=== PATIENT | female | born 1995 | race Caucasian/White ===

== ENCOUNTER 2018-04-19 19:00 | Emergency (ER) | payer OTHER ==
--- NOTE | 2018-04-19 19:33 | EDPHY ---
H & P Stated Complaint: Work comp, tripped and hit heat, L eyebrw lac Time Seen by Provider: 04/19/18 20:02 HPI/ROS: HPI: This is a 22-year-old female who presents with Chief Complaint: Left eyebrow laceration Location: Left eyebrow Quality: Laceration Duration: 1-2 hours prior to arrival Signs and Symptoms: no fever, no nausea, no vomiting, no photophobia, no noise sensitivity, no neck stiffness, no ear pain, no tinnitus, no nasal congestion, no sinus pressure, no weakness, no radiation, no aura Timing: Acute Severity: Mild Context: Patient has a history of severe concussion with cognitive deficits [place] and hitting her left eyebrow approximately 1-2 hours prior to arrival. She reports that the area started to bleed and she felt mild pain. She flushed it thoroughly with water and approximated the edges with Steri-Strips. After patient was in the emergency room over 1 hr, she then started complaining of a dull headache behind her left eye that radiates to the base of her neck. Patient does complain of mild dizziness but no amnesia/loss of consciousness/nausea/vomiting/ neck pain. Patient has Shadia IUD. Modifying Factors: See above Comment: ROS: see HPI Constitutional: No fever, no chills, no weight loss Eyes: No blurred vision Respiratory: No shortness of breath, no cough Cardiovascular: No chest pain, no palpitations Gastrointestinal: No nausea, no vomiting, no diarrhea, no hematemesis, no blood in stool Genitourinary: No dysuria, no blood in urine Extremities: No myalgias, no edema Neurologic: No weakness, no numbness Skin: No rashes, no petechiae Hematologic: No bruising, no bleeding MEDICAL/SURGICAL/SOCIAL HISTORY: Medical history: Generally healthy. Does not take any regular medications. Surgical history: Denies Social history: Nonsmoker. Family history noncontributory. CONSTITUTIONAL: Polite and cooperative young adult white female, laughing with friends at bedside, awake and alert, no obvious distress HEENT: 1/4 cm linear in left eyebrow well approximated laceration no active bleeding; Steri-Strips in place. normocephalic. NECK: supple, no midline tenderness, flexion 45 degrees, extension 45 degrees, right and left lateral flexion 45 degrees. No meningismus. Cardiovascular: Normal S1/S2, regular rate, regular rhythm, without murmur rub or gallop. PULMONARY/CHEST: Symmetrical and nontender. no crepitus. Clear to auscultation bilaterally. Good air movement. No accessory muscle usage. ABDOMEN: Soft, nondistended, nontender, no ecchymosis. EXTREMITIES: 2/2 pulses, strength 5/5, no deformities, no clubbing, no cyanosis or edema. NEUROLOGICAL: no focal neuro deficits. GCS 15. Light touch sensation intact. SKIN: Warm and dry, no erythema. no rash. Good capillary refill. Source: Patient Exam Limitations: No limitations - Personal History LMP (Females 10-55): IUD In Place Current Tetanus Diphtheria and Acellular Pertussis (TDAP): Yes - Medical/Surgical History Hx Asthma: No Hx Chronic Respiratory Disease: No Hx Diabetes: No Hx Cardiac Disease: No Hx Renal Disease: No Hx Cirrhosis: No Hx Alcoholism: No Hx HIV/AIDS: No Hx Splenectomy or Spleen Trauma: No Other PMH: polycystic ovian , endoscopy , ulcer caused by doxicline - Social History Smoking Status: Never smoked Constitutional: Initial Vital Signs Temperature (C) 36.6 C 04/19/18 19:13 Heart Rate 105 H 04/19/18 19:13 Respiratory Rate 20 04/19/18 19:13 Blood Pressure 149/93 H 04/19/18 19:13 O2 Sat (%) 96 04/19/18 19:13 O2 Delivery Mode Room Air Allergies/Adverse Reactions: morphine Allergy (Verified 04/19/18 19:13) Home Medications: Medication Instructions Recorded Effexor 10/21/14 MIRENA 10/21/14 Ondansetron Odt [Zofran Odt 4 mg 4 mg PO Q4 PRN #6 tab 10/21/14 (RX)] Medical Decision Making ED Course/Re-evaluation: Left eyebrow laceration is superficial, simple in nature. Steri-Strips already applied and wound appropriately approximated. No signs of active bleeding. Verbal and written wound care instructions provided. Patient had no loss of consciousness and no neurological deficits. No indication for head CT imaging based on [facility] CT head protocol. Patient advised of concussion precautions due to her history in March 2016 of a concussion that was deemed severe with cognitive deficits. Appropriate paperwork completed per [place]. This patient was seen under the supervision of my secondary supervising physician. I evaluated care for this patient independently. Discussed this patient with Dr. Gibson. Differential Diagnosis: Head injury including but not limited to concussion, skull fracture, intraparenchymal contusion, subarachnoid, subdural and epidural hematoma. Departure - Departure Disposition: Home, Routine, Self-Care Clinical Impression: Laceration of left eyebrow without complication Qualifiers: Encounter type: initial encounter Qualified Code(s): S01.112A - Laceration without foreign body of left eyelid and periocular area, initial encounter Concussion Qualifiers: Encounter type: initial encounter Loss of consciousness presence/duration: without LOC Qualified Code(s): S06.0X0A - Concussion without loss of consciousness, initial encounter Condition: Good Instructions: Steristrips (ED), Facial Laceration (ED), Concussion (ED) Additional Instructions: Keep the Steri-Strips dry for 48 hours. After 48 hours, you may wash the site daily with mild soap and water; then pat dry. Allow the Steri-Strips to fall off on their own in 5-7 days. Take Tylenol 650 mg every 4 hours and/or Ibuprofen 600 mg every 8 hours with food as needed for pain/headache. If at any time you are concerned about the cosmetic appearance, follow-up with plastic surgery for scar revision. You did sustain a closed head injury and it is recommended that you observe concussion precautions. If symptoms persist over the next 1-2 weeks, follow-up with Dr. Heath in the concussion Clinic. Return to the ER immediately if you have progressive headaches, neurologic deficits, gait abnormality, visual disturbance, slurred speech, or any other symptom that concerns you. Referrals: WANDA TUCKER JR [Primary Care Provider] - As per Instructions Wilber Bailey MD [Medical Doctor] - As per Instructions Brittani Heath MD [Medical Doctor] - As per Instructions Stand Alone Forms: Work Excuse
[2018-04-19 20:07] VITALS: BP 130/72
== END 2018-04-19 20:05 | disposition home or self-care (01) ==
DX: S01.112A Laceration without foreign body of left eyelid and periocular area, initial encounter (principal); W22.8XXA Striking against or struck by other objects, initial encounter

== ENCOUNTER 2018-08-23 16:19 | Observation (INO) | payer OTHER ==
--- NOTE | 2018-08-23 16:33 | EDPHY ---
H & P Time Seen by Provider: 08/23/18 16:21 HPI/ROS: CHIEF COMPLAINT: Left-sided chest pain and racing heart rate HISTORY OF PRESENT ILLNESS: Patient was at work making a snack for someone else when she had sudden onset of left-sided chest discomfort radiating up to her neck feeling lightheaded and dizzy. EMS found her in a narrow complex tachycardia at a rate of 260, converted her after 2 doses of 12 mg IV adenosine. And now she feels fatigued and tired with a little bit of residual discomfort in her chest. No shortness of breath or leg swelling. No recent travel or immobilization. Did not actually lose consciousness. REVIEW OF SYSTEMS: Eye: no change in vision ENT: no sore throat Cardiac: HPI Pulmonary: no cough or SOB Abdomen: no vomiting, diarrhea, abdominal pain Musculoskeletal: no back pain or leg swelling Skin: no rash Neuro: no headache Constitutional: no fever : no urinary symptoms A comprehensive 10 point review of systems is otherwise negative aside from elements mentioned in the history of present illness. PAST MEDICAL HISTORY: Attention deficit hyperactivity disorder, on Focalin, hypothyroid; hasn't taken thyroid medication in 1 month Social history: Works at [address], father is a cardiac surgeon at [facility] in [place] General Appearance: Alert and conversant, cooperative. Eyes: No scleral icterus. ENT, Mouth: Normal mucous membranes. Respiratory: Normal respiratory effort, breath sounds equal, lungs are clear to auscultation. Cardiovascular: Regular rate and rhythm. Tachycardic, normal heart rate she describes as in the mid 90s. No murmur. Gastrointestinal: Abdomen is soft and non tender. Neurological: Alert, face symmetric, normal motor and sensory in extremities. Skin: Warm and dry, no rashes. Musculoskeletal: No peripheral edema. No calf tenderness. Psychiatric: Moderately anxious. Emergency Department course/MDM: Patient presented with narrow complex supraventricular tachycardia which is terminated with adenosine. History of hypothyroid not on medications, I think that hyperthyroid, pulmonary embolism, acute coronary syndrome all unlikely. 1919: Heart rate 130, EKG reviewed with Dr. Fajardo, sent via text with the patient's consent. 1925: Discussed with father Jaylon by telephone at her request. Multiple doses of Ativan for anxiety. Oral Cardizem recommended by Dr. Fajardo; DC only if heart rate normalizes. 2038: Heart rate is still 125, Fajardo aware, admit hospitalist. Smoking Status: Never smoked Constitutional: Initial Vital Signs Temperature (C) 36.8 C 08/23/18 16:26 Heart Rate 127 H 08/23/18 16:26 Respiratory Rate 08/23/18 16:26 Blood Pressure 136/97 H 08/23/18 16:26 O2 Sat (%) 100 08/23/18 16:26 O2 Delivery Mode Nasal Cannula O2 (L/minute) 2 Allergies/Adverse Reactions: morphine Allergy (Severe, Verified 08/23/18 16:32) codeine Allergy (Intermediate, Verified 08/23/18 16:33) clindamycin Adverse Reaction (Mild, Verified 08/23/18 16:32) Home Medications: Medication Instructions Recorded Effexor 10/21/14 MIRENA 10/21/14 Ondansetron Odt [Zofran Odt 4 mg 4 mg PO Q4 PRN #6 tab 10/21/14 (RX)] FOCALIN 08/23/18 Medical Decision Making - Diagnostics EKG Interpretation: 12-lead EKG interpreted by me; official reading is in computer system. My interpretation is sinus tachycardia with left atrial enlargement rate 127. Specifically no delta wave is seen. Differential Diagnosis: Differential diagnosis considered for narrow complex tachycardia including but not limited to various causes of sinus tachycardia, SVT, atrial flutter and atrial fibrillation. Consult/Admit Bed Type: Dr. Mcneill 2042 - Data Points Laboratory Results: Laboratory Results 08/23/18 17:19 08/23/18 17:19 08/23/18 08/23/18 08/23/18 18:35 18:35 17:29 WBC RBC Hgb Hct MCV MCH MCHC RDW Plt Count MPV Neut % (Auto) Lymph % (Auto) Bowie % (Auto) Eos % (Auto) Baso % (Auto) Nucleat RBC Rel Count Absolute Neuts (auto) Absolute Lymphs (auto) Absolute Monos (auto) Absolute Eos (auto) Absolute Basos (auto) Absolute Nucleated RBC Immature Gran % Immature Gran # D-Dimer < 0.27 ug/mLFEU ug/mLFEU (0.00-0.50) Sodium Potassium Chloride Carbon Dioxide Anion Gap BUN Creatinine Estimated GFR Glucose Calcium TSH 1.600 uIU/mL uIU/mL (0.465-4.680) Beta HCG, Qual NEGATIVE 08/23/18 08/23/18 17:19 17:19 WBC 3.96 10^3/uL 10^3/uL (3.80-9.50) RBC 4.23 10^6/uL 10^6/uL (4.18-5.33) Hgb 13.9 g/dL g/dL (12.6-16.3) Hct 40.7 % % (38.0-47.0) MCV 96.2 fL fL (81.5-99.8) MCH 32.9 pg pg (27.9-34.1) MCHC 34.2 g/dL g/dL (32.4-36.7) RDW 12.1 % % (11.5-15.2) Plt Count 189 10^3/uL 10^3/uL (150-400) MPV 10.3 fL fL (8.7-11.7) Neut % (Auto) 61.3 % % (39.3-74.2) Lymph % (Auto) 30.3 % % (15.0-45.0) Bowie % (Auto) 6.8 % % (4.5-13.0) Eos % (Auto) 0.5 % L % (0.6-7.6) Baso % (Auto) 0.8 % % (0.3-1.7) Nucleat RBC Rel Count 0.0 % % (0.0-0.2) Absolute Neuts (auto) 2.43 10^3/uL 10^3/uL (1.70-6.50) Absolute Lymphs (auto) 1.20 10^3/uL 10^3/uL (1.00-3.00) Absolute Monos (auto) 0.27 10^3/uL L 10^3/uL (0.30-0.80) Absolute Eos (auto) 0.02 10^3/uL L 10^3/uL (0.03-0.40) Absolute Basos (auto) 0.03 10^3/uL 10^3/uL (0.02-0.10) Absolute Nucleated RBC 0.00 10^3/uL 10^3/uL (0-0.01) Immature Gran % 0.3 % % (0.0-1.1) Immature Gran # 0.01 10^3/uL 10^3/uL (0.00-0.10) D-Dimer Sodium 142 mEq/L mEq/L (135-145) Potassium 3.8 mEq/L mEq/L (3.5-5.2) Chloride 106 mEq/L mEq/L (97-110) Carbon Dioxide 23 mEq/l mEq/l (22-31) Anion Gap 13 mEq/L mEq/L (6-14) BUN 8 mg/dL mg/dL (7-23) Creatinine 0.7 mg/dL mg/dL (0.6-1.0) Estimated GFR > 60 Glucose 84 mg/dL mg/dL (70-100) Calcium 9.6 mg/dL mg/dL (8.5-10.4) TSH Beta HCG, Qual Medications Given: Diltiazem HCl (Cardizem Er Q24hr) 120 mg PO EDNOW ONE Stop: 08/24/18 19:22 Last Admin: 08/23/18 20:02 Dose: 120 mg Discontinued Medications Sodium Chloride (Ns) 1,000 mls @ 0 mls/hr IV EDNOW ONE; Wide Open PRN Reason: Protocol Stop: 08/23/18 19:26 Last Admin: 08/23/18 19:37 Dose: 1,000 mls Lorazepam (Ativan Injection) 1 mg IVP EDNOW ONE Stop: 08/23/18 16:58 Last Admin: 08/23/18 17:02 Dose: 1 mg Lorazepam (Ativan Injection) 1 mg IVP ONCE ONE Stop: 08/23/18 17:02 Last Admin: 08/23/18 17:09 Dose: Not Given Lorazepam (Ativan) 1 mg PO EDNOW ONE Stop: 08/23/18 19:35 Last Admin: 08/23/18 19:37 Dose: 1 mg Departure - Departure Disposition: [facility] Acute Clinical Impression: Supraventricular tachycardia Condition: Good
--- NOTE | 2018-08-23 16:41 | CPEKG ---
Test Reason : OPEN Blood Pressure : / mmHG Vent. Rate : 127 BPM Atrial Rate : 127 BPM P-R Int : 121 ms QRS Dur : 075 ms QT Int : 317 ms P-R-T Axes : 073 082 026 degrees QTc Int : 461 ms Sinus tachycardia Probable left atrial enlargement Minimal ST depression, inferior leads Confirmed by Sam Delcid ([id number]) on 08/23/2018 4:40:23 PM Referred By: Confirmed By:Sam Delcid
[2018-08-23] MEDS ORDERED: LORazepam 2 MG/ML INJ IVP ONE ×2 (16:57→17:01)
[2018-08-23] MEDS ORDERED: LORazepam 2 MG/ML INJ ONE (16:58)
[2018-08-23 17:31] LABS: PLATELET COUNT 189 10^3/uL (150-400)
[2018-08-23] MEDS ORDERED: NS 1,000 ML IV ONE (19:25)
[2018-08-23] MEDS ORDERED: LORazepam 1 MG TAB ONE (19:33)
[2018-08-23] MEDS ORDERED: LORazepam 1 MG TAB PO ONE ×2 (19:34→23:11)
[2018-08-23] MEDS ORDERED: ONDANSETRON 4 MG/2 ML VIAL IVP PRN (21:07)
[2018-08-23] MEDS ORDERED: ONDANSETRON DISINTEGRATING 4 MG TAB PO PRN (21:07)
[2018-08-23] MEDS ORDERED: ACETAMINOPHEN 325 MG TAB PO PRN (21:07)
[2018-08-23] MEDS ORDERED: NS 1,000 ML IV SCH (21:15)
--- NOTE | 2018-08-23 22:02 | GHP ---
DATE OF ADMISSION: 08/23/2018 HISTORY OF PRESENT ILLNESS: The patient is a 22-year-old female with a history of anxiety, ADHD on a stimulant medicine, who presents with an episode SVT. She was at work today. 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 She felt flushed, poor, called 911, was found to be in SVT at 260. She received 2 doses of adenosine with conversion to sinus tach. She has been in the em ergency department for a number of hours with persistent sinus tachycardia. When I speak with her, s he noted she has had a cough of late but no shortness of breath. She has not had urinary symptoms of burning or pain. She does not have abdominal pain. No rash on her skin. She drinks alcohol freque ntly, but does not appear clinically to be in withdrawal, and I do not think her alcohol use is such that she would be at risk for withdrawal. She had a negative D-dimer. She has a normal TSH here. S he appears euvolemic. She received 120 mg of diltiazem, and her pulse was still remains above 100. She denies heavy marijuana use or other drug use. REVIEW OF SYSTEMS: Complete 10-point review of systems conducted negative except as noted in the HPI . PAST MEDICAL HISTORY: ADHD, depression, and now SVT. ALLERGIES: Morphine, codeine, clindamycin. MEDICATIONS: Home medications are Effexor, Focalin which is an amphetamine-like stimulant, Mirena wh ich is an oral contraceptive, and ondansetron. SOCIAL HISTORY: She does not smoke cigarettes. Alcohol as in the HPI. Does not use marijuana. Her father is a cardiac surgeon at [facility]. FAMILY HISTORY: Negative for cardiac problems. PHYSICAL EXAMINATION: VITAL SIGNS: Temp 36.8, blood pressure 136/97, pulse 127. It has been about 115-120 when I was seeing her. Breathing 19 times a minute, 98% on room air. GENERAL: No acute dis tress. HEENT: Sclerae anicteric. Oropharynx clear. Mucous membranes moist. NECK: Supple without lymphadenopathy or JVD. LUNGS: Clear to auscultation bilaterally. HEART: S1, S2. ABDOMEN: Soft , nontender, nondistended. LOWER EXTREMITIES: No edema. Calves are nontender. SKIN: Without rash . NEUROLOGIC: Nonfocal. LABS: White count 4, hematocrit 40.7, platelets are 189,000. D-dimer is less than 0.27. Chem 7: S odium 142, potassium 3.8, chloride 106, bicarb 23, BUN 8, creatinine 0.7, glucose 84, calcium is 9.6. TSH is 1.6. Beta HCG is negative. EKG interpreted by me shows sinus tach at about 127 with normal axis and intervals. There is a negative P axis in V1 and V2, which is slightly abnormal. There are no ST or T-wave changes. I discussed the case Dr. Sam Delcid and Dr. Ivy Fajardo. ASSESSMENT AND PLAN: A 22-year-old female with supraventricular tachycardia followed by sinus tachyc ardia. 1. Supraventricular tachycardia. This is almost certainly supraventricular tachycardia on the basis of the strips. They are at her bedside. She received 2 doses of adenosine. This is an episodic ev ent. We will check an echocardiogram. 2. Apparent inappropriate tachycardia. The patient remains tachycardic without a clear reason. She is not . She is not hypothyroid. She appears euvolemic. She does not have an infection or sepsis. She does not appear to be in alcohol withdrawal or agitated. That said, we will go ahead a nd complete a workup with volume challenge of normal saline, a chest x-ray, urinalysis, and urine tox screen. 3. I will start her on low-dose beta hernesto and check echocardiogram in the morning. 4. Attention deficit hyperactivity disorder. I think her Focalin medicine could be part of the issu e that can cause tachycardia in some people. I recommend holding it. Granted I am not considering w hat this would due to her functional status at work. 5. Anxiety. This may be playing a role, although most people who are anxious do not have a heart ra te of 120 for hours at a time. 6. Prophylaxis. Low risk. DISPOSITION: Observation status. Will be seen by Cardiology tomorrow. /[id number]/MODL
[2018-08-23] MEDS: METOPROLOL TARTRATE 25 MG TAB PO SCH (22:33)
[2018-08-24] MEDS: METOPROLOL TARTRATE 25 MG TAB PO SCH ×2 (09:19→20:35)
--- NOTE | 2018-08-24 12:53 | ECHO ---
[email or web address] [address] [address] Main: [phone] Fax: Transthoracic Echocardiogram Name: SHARRON DE LEON MR#: [id number] Study Date: 08/24/2018 Study Time: 08:52 AM Date of : 1995 Age: 22 year(s) Height: 160 cm (63 in.) Weight: 53.07 kg (117 lb.) BSA: 1.54 m2 Gender: Female Examination: Echo Indication: sinus tachycardia Image Quality: Adequate Contrast: Requested by: Scott Mcneill BP: 114 mmHg/85 mmHg Heart Rate: Rhythm: Indication: sinus tachycardia Procedure Staff Vessel Traffic Officer: Lesly Barker [facility] Reading Physician: Dylan Kelly MD Requesting Provider: Conclusions: Normal size left ventricle. No LV hypertrophy. Normal global systolic LV function. EF is 64 %. No regional wall motion abnormality. Normal diastolic LV function. Normal size right ventricle. The left atrium is normal in size. The right atrium is normal in size. The mitral valve is normal in appearance and function. Mild mitral valve regurgitation is present. The aortic valve is tri-leaflet. There is no significant aortic valve regurgitation. The tricuspid valve is normal in appearance and function. Mild tricuspid regurgitation is present. The pulmonary artery pressure is normal. The pulmonic valve is normal in appearance and function. Trivial pulmonic valve regurgitation. No pericardial effusion. Measurements: Chambers Valvular Assessment AV/MV Valvular Assessment TV/PV Normal Normal Normal Name Value Range Name Value Range Name Value Range Ao Milena (2D): 2.4 cm (1.4 cm-2.6 AV Vmax: 1.25 m/s (1 m/s-1.7 TR Vmax: 2.29 mm/s ( - ) cm) m/s) TR PGmax: 21 mmHg ( - ) IVSd (2D): 0.8 cm (0.6 cm-1.1 AV maxP mmHg ( - ) syst. PAP: 26 mmHg ( - ) cm) AV meanP mmHg ( - ) PV Vmax: 0.79 m/s (0.6 m/s-0.9 LVDd (2D): 3.8 cm (3.9 cm-5.3 NATHAN (VTI): 1.7 cm ( - ) m/s) cm) Patient: SHARRON DE LEON Study Date: 08/24/2018 Page 1 of 2 08:52 AM LVDs (2D): 2.6 cm (2.1 cm-4 MV E Vmax: 0.90 m/s ( - ) PV PGmax: 2 mmHg ( - ) cm) MV A Vmax: 0.53 m/s ( - ) LVPWd (2D): 0.8 cm ( - ) MV E/A: 1.70 ( - ) LVOTd 1.9 cm 1.9 cm mm MV PHT: 0.051 s ( - ) LVEF (BP): 64 % (>=55 %) MVA (PHT): 4.3 s ( - ) RVDd(2D): 2.8 cm (1.9 cm-3.8 cmmm) Continued Measurements: Chambers Valvular Assessment AV/MV Valvular Assessment TV/PV Name Value Name Value Name Value LADs: 2.6 cm MV DecTime: 183 m/s CVP (est.): 5 mmHg LADs Lon.1 cm MV E' Septal: 0.14 m/s LA Area: 12.9 cm2 MV E/E' Septal: 6.70 RA Area: 11.1 cm2 MV E/E' Lateral: 7.10 Additional Vessels Name Value Ao Ascendin.9 cm Inferior Vena Cava: 1.2 cm Findings: Left Ventricle: Normal size left ventricle. No LV hypertrophy. Normal global systolic LV function. EF is 64 %. No regional wall motion abnormality. Normal diastolic LV function. Right Ventricle: Normal size right ventricle. Normal RV function. Left Atrium: The left atrium is normal in size. Right Atrium: The right atrium is normal in size. Mitral Valve: The mitral valve is normal in appearance and function. Mild mitral valve regurgitation is present. No mitral stenosis is present. Aortic Valve: The aortic valve is tri-leaflet. There is no significant aortic valve regurgitation. No aortic valve stenosis is present. Tricuspid Valve: The tricuspid valve is normal in appearance and function. Mild tricuspid regurgitation is present. The pulmonary artery pressure is normal. Right ventricular systolic pressure measures 26mmHg. Pulmonic Valve: The pulmonic valve is normal in appearance and function. Trivial pulmonic valve regurgitation. Aorta: The aorta is normal. Normal size aortic root measuring 2.4 cm. Normal size ascending aorta measuring 2.9 cm. IVC: The IVC is normal sized. Pericardium: No pericardial effusion. No pleural effusion. (No Signature Object) Patient: SHARRON DE LEON Study Date: 08/24/2018 Page 2 of 2 08:52 AM [id number]
--- NOTE | 2018-08-24 13:00 | PDCARCONS ---
Cardiology Consult Reason for Consult: Episode of SVT with symptoms Chief Complaint: Flushed sensation Requesting Physician: Hospitalist team History of Present Illness: Patient is a 22 y/o female with history of ADHD and depression, but no HTN, HLP , CAD, or DM, who presented to [facility] ER after episode of fast heart rates with associated symptoms. 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 Patient was taken to the ER and given the rate/rhythm noted, Adenosine was given with conversion to sinus tachycardia after a second round of therapy. Post conversion, the patient noted fatigue. Chest discomfort was initial symptom when fast heart rate was noted. No further complaints of chest discomfort today. In speaking with the patient, she has noted fast heart rates in the past, but none have lasted as long as this, or been noted to be as fast as this was noted. At present, the patient is somewhat lethargic, and resting in bed. She admits that her sleep overnight was not very good. No fevers or chills. No PND or orthopnea. Remainder of 12 point review of systems is unremarkable History Information - Allergies/Home Medication List Allergies/Adverse Reactions: morphine Allergy (Severe, Verified 08/23/18 21:41) codeine Allergy (Intermediate, Verified 08/23/18 21:41) clindamycin Allergy (Mild, Verified 08/23/18 21:41) Home Medications: Levonorgestrel [Mirena] 1 each IY ONCE 10/21/14 [Last Taken Unknown] Dexmethylphenidate HCl [FOCALIN] 10 mg PO Q4HRS PRN 08/23/18 [Last Taken ] Herbals/Supplements -Info Only 1 ea PO DAILY 08/23/18 [Last Taken 08/23/18] Ibuprofen [Advil] 600 mg PO Q8H PRN 08/23/18 [Last Taken 08/22/18] I have personally reviewed and updated: family history, medical history, social history, surgical history Past Medical History: - Past Medical History Additional medical history: depression and ADHD - Surgical History Reports: no pertinent surgical hx - Family History Positive for: non-pertinent - Social History Smoking Status: Never smoked Alcohol Use: Rarely Drug Use: None Cardiac History - Cardiac History Severity Scale: 10 Location: substernal Activities at Onset: activity Modifying Factors: improves with: rest, other (Adenosine) Associated Symptoms: chest pain, malaise, shortness of breath, weakness Physical Exam Physical Exam: Temp Pulse Resp BP Pulse Ox 37.2 C 87 10 L 92/78 L 98 08/24/18 11:31 08/24/18 11:31 08/24/18 11:31 08/24/18 11:31 08/24/18 11:31 Constitutional: no apparent distress, appears nourished, not in pain Eyes: PERRL, EOMI Ears, Nose, Mouth, Throat: moist mucous membranes, hearing normal, ears appear normal Cardiovascular: regular rate and rhythym, no murmur, rub, or gallop, pulses symmetric bilaterally, tachycardia, No JVD, No edema Peripheral Pulses: 2+: dorsalis-pedis (R), dorsalis-pedis (L) Respiratory: no respiratory distress, no rales or rhonchi, clear to auscultation Skin: warm Musculoskeletal: full muscle strength, no muscle tenderness Neurologic: AAOx3, sensation intact bilaterally Psychiatric: interacting appropriately, not anxious, not encephalopathic Lab and Imaging 08/23/18 17:19 08/24/18 03:36 WBC 3.96 10^3/uL (3.80-9.50) 08/23/18 17: RBC 4.23 10^6/uL (4.18-5.33) 08/23/18 17:19 Hgb 13.9 g/dL (12.6-16.3) 08/23/18 17:19 Hct 40.7 % (38.0-47.0) 08/23/18 17:19 MCV 96.2 fL (81.5-99.8) 08/23/18 17:19 MCH 32.9 pg (27.9-34.1) 08/23/18 17: MCHC 34.2 g/dL (32.4-36.7) 08/23/18 17:19 RDW 12.1 % (11.5-15.2) 08/23/18 17:19 Plt Count 189 10^3/uL (150-400) 08/23/18 17: MPV 10.3 fL (8.7-11.7) 08/23/18 17:19 Neut % (Auto) 61.3 % (39.3-74.2) 08/23/18 17:19 Lymph % (Auto) 30.3 % (15.0-45.0) 08/23/18 17:19 Bland % (Auto) 6.8 % (4.5-13.0) 08/23/18 17:19 Eos % (Auto) 0.5 % (0.6-7.6) L 08/23/18 17:19 Baso % (Auto) 0.8 % (0.3-1.7) 08/23/18 17:19 Nucleat RBC Rel Count 0.0 % (0.0-0.2) 08/23/18 17:19 Absolute Neuts (auto) 2.43 10^3/uL (1.70-6.50) 08/23/18 17:19 Absolute Lymphs (auto) 1.20 10^3/uL (1.00-3.00) 08/23/18 17:19 Absolute Monos (auto) 0.27 10^3/uL (0.30-0.80) L 08/23/18 17:19 Absolute Eos (auto) 0.02 10^3/uL (0.03-0.40) L 08/23/18 17:19 Absolute Basos (auto) 0.03 10^3/uL (0.02-0.10) 08/23/18 17:19 Absolute Nucleated RBC 0.00 10^3/uL (0-0.01) 08/23/18 17:19 Immature Gran % 0.3 % (0.0-1.1) 08/23/18 17:19 Immature Gran # 0.01 10^3/uL (0.00-0.10) 08/23/18 17:19 D-Dimer < 0.27 ug/mLFEU (0.00-0.50) 08/23/18 18:35 Sodium 139 mEq/L (135-145) 08/24/18 03:36 Potassium 3.7 mEq/L (3.5-5.2) 08/24/18 03:36 Chloride 106 mEq/L (97-110) 08/24/18 03:36 Carbon Dioxide 24 mEq/l (22-31) 08/24/18 03:36 Anion Gap 9 mEq/L (6-14) 08/24/18 03:36 BUN 12 mg/dL (7-23) 08/24/18 03:36 Creatinine 0.6 mg/dL (0.6-1.0) 08/24/18 03:36 Estimated GFR > 60 08/24/18 03:36 Glucose 82 mg/dL (70-100) 08/24/18 03:36 Calcium 8.6 mg/dL (8.5-10.4) 08/24/18 03:36 NT-Pro-B Natriuret Pep 346 pg/mL (0-125) H 08/24/18 03:36 TSH 1.600 uIU/mL (0.465-4.680) 08/23/18 18:35 Beta HCG, Qual NEGATIVE 08/23/18 17:29 Urine Color YELLOW 08/24/18 07:50 Urine Appearance CLEAR 08/24/18 07:50 Urine pH 6.0 (5.0-7.5) 08/24/18 07:50 Ur Specific Bliss 1.018 (1.002-1.030) 08/24/18 07:50 Urine Protein NEGATIVE (NEGATIVE) 08/24/18 07:50 Urine Ketones NEGATIVE (NEGATIVE) 08/24/18 07:50 Urine Blood NEGATIVE (NEGATIVE) 08/24/18 07:50 Urine Nitrate NEGATIVE (NEGATIVE) 08/24/18 07:50 Urine Bilirubin NEGATIVE (NEGATIVE) 08/24/18 07:50 Urine Urobilinogen NEGATIVE EU (0.2-1.0) 08/24/18 07:50 Ur Leukocyte Esterase NEGATIVE (NEGATIVE) 08/24/18 07:50 Urine Glucose NEGATIVE (NEGATIVE) 08/24/18 07:50 Nasal Influenza A PCR NEGATIVE FOR FLU A (NEGATIVE) 08/23/18 22:50 Nasal Influenza B PCR NEGATIVE FOR FLU B (NEGATIVE) 08/23/18 22:50 Urine Opiates Screen NEGATIVE (NEGATIVE) 08/24/18 07:50 Urine Barbiturates NEGATIVE (NEGATIVE) 08/24/18 07:50 Ur Phencyclidine Scrn NEGATIVE (NEGATIVE) 08/24/18 07:50 Ur Amphetamine Screen NEGATIVE (NEGATIVE) 08/24/18 07:50 U Benzodiazepines Scrn NON-NEGATIVE (NEGATIVE) H 08/24/18 07:50 Urine Cocaine Screen NEGATIVE (NEGATIVE) 08/24/18 07:50 U Marijuana (THC) Screen NEGATIVE (NEGATIVE) 08/24/18 07:50 Visualized and Interpreted Chest x-ray results: Yes Chest X-ray Interpretation: normal, normal heart size EKG Interpretation: Positive for: normal sinsus rhythm EKG additional interpertation: Sinus tachycardia Telemetry: Sinus tachycardia Echocardiogram: normal LVEF, no valve pathology, normal thickness A/P Assessment: Patient is a 22 y/o female with history of ADHD and depression with a protracted episode of SVT noted yesterday. Rates reported hit >250 bpm. Lightheadedness and chest tightness were noted with weakness and shortness of breath. Adenosine was given the ER (with a need to have second dose) prior to successful conversion to normal sinus rhythm. At present, patient is doing well , but feeling fatigued. Echocardiography with normal systolic function, chamber dimensions, and valve morphology noted. Plan: Would arrange for patient to be seen by EP in light of the arrhythmia that was noted. Discussion about ablation as an option given the rate and symptoms noted. Continue low dose beta hernesto therapy for the time being. Would be helpful to have the rhythm strips from the ER and/or floor that revealed the rates reported.
--- NOTE | 2018-08-24 15:56 | ASMTCMCOM ---
CM Note CM Note Notes: Pt is a 22 y/o female admitted for tachydysrhythmia. 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 Pt will most likely not have any d/c needs. CM available for changes. Plan: Independent Date Signed: 08/24/2018 03:56 PM Electronically Signed By:LILY Cano
[2018-08-24] MEDS ORDERED: DEXMETHYLPHENIDATE HCL 5 MG PO PRN (16:28)
[2018-08-24] MEDS ORDERED: NON-FORMULARY NEW DRUG (Levonorgestrel [Mirena] 1 EACH) IY SCH (16:30)
--- NOTE | 2018-08-24 16:32 | HOSPPROG ---
Hospitalist Progress Note Assessment/Plan: Patient is a 22 y/o female with history of ADHD and depression with a protracted episode of SVT noted on admission #SVT/Tachycardia -per report hit >250 bpm -s/p 2 rounds of adenosine with conversion to NSR -cont Metoprolol which was started here -Echocardiography with normal systolic function, chamber dimensions, and valve morphology noted -Cards will arrange for patient to be seen by EP in light of the arrhythmia that was noted #ADHD: Ok to restart Focali #Depression Pt still with mild tachycardia, still feels weak. Will monitor on telemetry overnight. Anticipate d/c in a.m. Subjective: no cp or sob. still with some tachycardia. afebrile. Objective: Vital Signs Temp Pulse Resp BP Pulse Ox 37.2 C 87 10 L 92/78 L 98 08/24/18 11:31 08/24/18 11:31 08/24/18 11:31 08/24/18 11:31 08/24/18 11:31 Laboratory Results 08/24/18 03:36 08/23/18 08/24/18 08/25/18 05:59 05:59 05:59 Intake Total 2490 780 Balance 2490 780 - Physical Exam Constitutional: no apparent distress Eyes: PERRL Ears, Nose, Mouth, Throat: moist mucous membranes Cardiovascular: tachycardia, No edema Respiratory: no respiratory distress, no rales or rhonchi, clear to auscultation Gastrointestinal: normoactive bowel sounds, soft, non-tender abdomen Skin: warm Neurologic: AAOx3 Psychiatric: interacting appropriately, not anxious, not encephalopathic Lymph, Heme, Immunologic: No petechiae ICD10 Worksheet Patient Problems: Problems Problem Status Onset Supraventricular tachycardia Acute
[2018-08-24] MEDS ORDERED: DILTIAZEM CD 120 MG CAP PO ONE (19:21)
[2018-08-24] MEDS ORDERED: LORazepam 0.5 MG TAB PO PRN (21:00)
[2018-08-25] MEDS: METOPROLOL TARTRATE 25 MG TAB PO SCH (09:46)
--- NOTE | 2018-08-25 12:31 | PDDCSUM ---
Discharge Summary Discharge Summary: Patient is a 22 y/o female with history of ADHD and depression who was admitted with a protracted episode of SVT. Rates reported hit >250 bpm. Lightheadedness and chest tightness were noted with weakness and shortness of breath. Adenosine was given the ER (with a need to have second dose) prior to successful conversion to normal sinus rhythm. Echocardiography with normal systolic function, chamber dimensions, and valves. She was started on Metoprolol. There was no recurrence of SVT. The pt was consulted by Cardiology. The plan is for f/u with Electrophysiology and she has an appt to do so. All home meds have been restarted as ok per Cardiology DDX: #SVT/Tachycardia -per report hit >250 bpm -s/p 2 rounds of adenosine with conversion to NSR -cont Metoprolol which was started here -Echocardiography with normal systolic function, chamber dimensions, and valve morphology noted -Cards will arrange for patient to be seen by EP in light of the arrhythmia that was noted #ADHD: cont Focali #Depression Exam: NAD AAO3 RRR CTA B MEDS: SEE MED REC TOTAL TIME SPENT ON D/C IS 35 MINS
[2018-08-25 14:47] VITALS: BP 125/92
--- NOTE | 2018-08-25 19:28 | ASMTLACE ---
IVAN Length of stay for Answers: 2 days current admission Acuity / Level of Answers: No Care: Did the patient have an inpatient admission? Comorbidities - select Answers: Other Notes: SVT all that apply # of Emergency department Answers: 1-2 visits in the last 6 months Social determinants Answers: Mental health diagnosis (anxiety, depression, pers onality disorders, etc.) Score: 7 Date Signed: 08/25/2018 07:28 PM Electronically Signed By:Liz Villalba RN
--- NOTE | 2018-08-25 19:31 | ASDISCHSUM ---
Discharge Information Plan Status:Home with No Needs Medically Cleared to Leave:08/24/2018 Discharge Date:08/25/2018 03:02 PM CM D/C Disposition:Home, Routine, Self-Care ADT D/C Disposition:Home, Routine, Self-Care Projected Discharge Date:08/25/2018 03:02 PM Transportation at D/C:Family Discharge Delay Reason: Follow-Up Date:08/25/2018 03:02 PM Discharge Slot:2 - 12:01 pm - 18:00 pm Final Diagnosis:SVT, tachycardia, depression, ADHD Placement Information Patient Contact Information Contact Name:MARIA DOLORES Relationship:Father Address:[address] Work Phone: City:[place] Alternate Phone: State/Zip Code:[place] [address] Email: Financial Information Financial Class:[facility] [employer] Primary Plan Desc:[facility] [employer] Primary Plan Number:[id number] Secondary Plan Desc: Secondary Plan Number: Assessment Information LACE LACE Length of stay for Answers: 2 days current admission Acuity / Level of Answers: No Care: Did the patient have an inpatient admission? Comorbidities - select Answers: Other Notes: SVT all that apply # of Emergency department Answers: 1-2 visits in the last 6 months Social determinants Answers: Mental health diagnosis (anxiety, depression, pers onality disorders, etc.) Score: 7 Date Signed: 08/25/2018 07:28 PM Electronically Signed By:Liz Villalba RN [facility] CM Progress Note CM Note CM Note Notes: Pt is a 22 y/o female admitted for tachydysrhythmia. 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 CM available for changes. Plan: Independent Date Signed: 08/24/2018 03:56 PM Electronically Signed By:LILY Cano [facility] Progress Note CM Note CM Note Notes: Reviewed chart, spoke with JOSLYN Ruelas. Per Dr. Solis, pt to discharge home independently today with no identified needs. No PT/OT orders. Pt to follow up as directed. No IM/CAMACHO forms signed, not applicable. CM available for any further issues or concerns. Discharge Plan: Home Independently Date Signed: 08/25/2018 07:30 PM Electronically Signed By:Liz Villalba RN Intervention Information
== END 2018-08-25 15:02 | disposition home or self-care (01) ==
LOC: EDUNIT# → EEVIPCON 16:19 → F2W 22:00
PROVIDERS: ADMIT Internal Medicine; ATTEND Family Medicine
DX: I47.1 Supraventricular tachycardia (principal); E86.9 Volume depletion, unspecified; F32.9 Major depressive disorder, single episode, unspecified; F41.9 Anxiety disorder, unspecified; F90.9 Attention-deficit hyperactivity disorder, unspecified type; E03.9 Hypothyroidism, unspecified
CPT/HCPCS: 71046; 93005; 93306; 96361; 96374; 99285; G0378; 80305; J2060

== ENCOUNTER → 2018-10-06 | Outpatient (CLI) | payer OTHER | LOC: MERGE 17:16 → BMCIMAGING 17:16 | PROVIDERS: ATTEND Family Medicine | DX: M79.641 Pain in right hand (principal) ==